=== PATIENT | male | born 1995 | race Asian ===

== ENCOUNTER 2018-07-09 21:57 | Emergency (ER) | payer OTHER ==
[~2018-07-09] VITALS: Ht 185.4 cm; Wt 72.6 kg
[2018-07-09 22:21] VITALS: TEMP 97.9
[2018-07-10 00:40] VITALS: BP 132/55
== END 2018-07-10 00:40 | disposition home or self-care (01) ==
LOC: ED 21:57
DX: S00.83XA Contusion of other part of head, initial encounter (principal); S50.12XA Contusion of left forearm, initial encounter; S70.02XA Contusion of left hip, initial encounter; W01.0XXA Fall on same level from slipping, tripping and stumbling without subsequent striking against object, initial encounter; Y92.480 Sidewalk as the place of occurrence of the external cause
CPT/HCPCS: 96372; 99283; J1885